=== PATIENT | female | born 2000 | race Two or more races ===

== ENCOUNTER 2021-08-29 19:56 | Emergency (ER) | payer OTHER ==
--- NOTE | 2021-08-29 20:27 | NUR ---
CALLED FOR TRIAG, NO ANSWER
[2021-08-30] MEDS ORDERED: CLINDAMYCIN 900 MG/6 ML VIAL ONE (03:26)
[2021-08-30] MEDS ORDERED: AMOX-430 PO (05:52)
[2021-08-30] MEDS ORDERED: IBUP-1953 PO (05:52)
[2021-08-30] MEDS ORDERED: ACET-868 PO (05:52)
== END 2021-08-29 20:30 | disposition left against medical advice (07) ==
LOC: ER 20:14
DX: Z53.21 Procedure and treatment not carried out due to patient leaving prior to being seen by health care provider (principal)
CPT/HCPCS: J3490

== ENCOUNTER 2021-08-29 23:12 | Emergency (ER) | payer OTHER ==
[~2021-08-29] VITALS: Ht 162.6 cm; Wt 50.8 kg
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
[2021-08-30] MEDS ORDERED: BACITRACIN ZINC OINT PACKET 1 EA PACKET TP ONE ×2 (00:26→00:30)
--- NOTE | 2021-08-30 00:47 | NUR ---
WOUND CARE DONE TO PT'S FORHEAD.
[2021-08-30] MEDS ORDERED: ACETAMINOPHEN 325 MG TABLET PO ONE (01:30)
[2021-08-30] MEDS ORDERED: ACETAMINOPHEN 325 MG TABLET ONE (02:13)
[2021-08-30] MEDS ORDERED: CLINDAMYCIN IV RTU IN D5W 900 MG/50 ML PIGGYBACK IV STA (03:14)
[2021-08-30] MEDS ORDERED: CLINDAMYCIN PHOSPHATE IV 600 MG/4 ML VIAL ONE (03:24)
[2021-08-30] MEDS ORDERED: ONDANSETRON HCL/PF 4 MG/2 ML VIAL IV ONE (03:30)
[2021-08-30] MEDS ORDERED: ONDANSETRON HCL/PF 4 MG/2 ML VIAL ONE (03:49)
[2021-08-30] MEDS ORDERED: AMOX-430 PO (05:52)
[2021-08-30] MEDS ORDERED: ACET-868 PO (05:52)
[2021-08-30] MEDS ORDERED: IBUP-1953 PO (05:52)
--- NOTE | 2021-08-30 06:56 | NUR ---
Patient discharged to home in stable condition. Written and verbal after care instructions given. Patient verbalizes understanding of instruction.
[2021-08-30 07:36] VITALS: BP 108/55
== END 2021-08-30 07:37 | disposition home or self-care (01) ==
LOC: ER 23:21
DX: S02.2XXA Fracture of nasal bones, initial encounter for closed fracture (principal); S01.21XA Laceration without foreign body of nose, initial encounter; S80.212A Abrasion, left knee, initial encounter; F10.129 Alcohol abuse with intoxication, unspecified; W18.39XA Other fall on same level, initial encounter; Y93.89 Activity, other specified; Y92.89 Other specified places as the place of occurrence of the external cause; Y99.8 Other external cause status; Y90.9 Presence of alcohol in blood, level not specified
CPT/HCPCS: 12011; 70450; 70486; 84703; 96365; 96375; 99284; J2405; J3490; J7030; J7060